=== PATIENT | female | born 2000 | race Caucasian/White ===

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

== ENCOUNTER 2018-03-21 10:30 | Emergency (ER) | payer OTHER | END 2018-03-21 11:10 | disposition home or self-care (01) | LOC: FTE 10:30 | DX: J06.9 Acute upper respiratory infection, unspecified (principal) | CPT/HCPCS: 99283; Z7502 ==

== ENCOUNTER 2018-06-06 19:29 | Emergency (ER) | payer OTHER ==
[2018-06-06] MEDS: KETOROLAC 60 MG INJ IM (23:08)
== END 2018-06-06 23:41 | disposition home or self-care (01) ==
LOC: FTE 19:29
DX: G44.219 Episodic tension-type headache, not intractable (principal)
CPT/HCPCS: 81025; 82962; 96372; 99284-25